=== PATIENT | male | born 1935 | race Caucasian/White ===

== ENCOUNTER 2016-07-31 19:36 | Inpatient (IN) | payer MEDICARE, OTHER ==
--- NOTE | ~2016-07-31 | IDS ---
Interim Discharge Summary [facility] [address] [place]. [address] NAME: JODIE PHAM : 34 STATUS : ADM IN PAT#: [id number] AGE: 81 ADM/REG DATE : 07/31/16 MR#: [id number] REPORT SERV DATE: 08/05/16 DICTATED BY: BEBO YEH DATE: 08/05/16 REPORT STATUS : Draft TRANSCRIBED BY: MODCaroline DATE: 08/05/16 ADMISSION DATE: 07/31/2016 DISCHARGE DATE: PCP: Ivania Moon M.D. INTERIM DIAGNOSES: 1. Possible right aspiration pneumonia. 2. COPD by CT scan. 3. Status post left hemiarthroplasty for femoral neck fracture. 4. Rule out left hip hematoma. 5. Closed head injury. 6. Acute blood loss anemia, status post 1 unit packed RBC. 7. History of peptic ulcer disease. 8. Dementia with sundowning. 9. Hypothyroidism. 10.Right pulmonary lung nodule, found in CAT scan. DIAGNOSTIC EXAMS: CAT scan of the brain without, showing no evidence of acute intracranial traumatic injury or pathology. Cerebral volume loss with mild supratentorial white matter disease suggesting microangiopathy. Cervical spine CAT scan showing no evidence of acute traumatic injury to the cervical spine. Multilevel cervical spondylosis and facet arthropathy with mild canal stenosis C6-C7 level; 0.6 cm right apical lung nodule with biapical scarring and emphysematous disease. Followup nonemergent chest CT recommended. Calcified atherosclerosis of the carotid bifurcations. Chest x-ray, no acute cardiopulmonary abnormality. Hip x-ray, impacted left femoral neck fracture. Pelvic x-ray, status post left hip arthroplasty without evidence of complication. CAT scan of the chest without showing 0.6 cm and pair of other 0.2 and 0.3 cm right upper lung pulmonary nodule. No other suspicious nodules or masses. Six-month followup with low-dose chest CT recommended. Patchy consolidation of the right lung base concerning for pneumonia or aspiration. Right upper lobe predominant COPD. LAD coronary artery sclerosis and/or stenting. Repeat chest x-ray, developing right basilar consolidation and mild left basilar atelectasis. KUB: Nonobstructive bowel gas pattern. HOSPITAL COURSE: Please refer to the H and P done by Dr. Guerra dated on 07/31/2016. Briefly this is an 81-year-old male, who comes in for left hip pain. The patient has a history of mild dementia and was going to ride his bike. He lost his balance, he hit his left side including his left head. The patient then could not get up because of left hip pain, brought to the emergency room, was found to have a left femoral neck impacted fracture. The patient was admitted by Dr. Guerra, and it does not seem that the patient has any traumatic brain injury. The patient then underwent a left hemiarthroplasty and that night, the patient had some sundowning. We discussed with the family at length that it is better to have a family member involved on just medications to keep the patient calm, but they said that nobody can come and they requested for medications. I discussed at length about the side affects of this and they agreed for me to give it. The patient is now being Interim Discharge Summary [address] [address] NAME: JODIE PHAM : 34 STATUS : [facility]#: [id number] AGE: 81 ADM/REG DATE : 07/31/16 MR#: [id number] REPORT SERV DATE: 08/05/16 DICTATED BY: BEBO YHE DATE: 08/05/16 REPORT STATUS : Draft TRANSCRIBED BY: MARISOL DATE: 08/05/16 given Angelo for this. Meanwhile we noted that his H and H went down from an initial 13.2 and 40 on admission, down to 8 and 23.6. We also noted that there seems to be increased bruising in the left hip area after the surgery, and I am worried about a hematoma. Orthopedic is involved and they agreed to hold the Eliquis for now. The patient started having some fever and some frothing in the mouth. It seems like he is spitting some clear phlegm. We repeated the x-ray and it shows a right lower infiltrate. The patient might have aspirated, so we started Zosyn on him. Unfortunately we are not able to get any sputum from him. The patient's lung nodule was also found during the CAT scan and also possible COPD. The patient got one unit of blood, it raised his H and H. He seems to be a little bit better right now. We are going to have Speech evaluate his swallowing and continue the antibiotics, monitoring the H and H, and we will await for further input from Orthopedics with regard to the left hip. Partner of [facility] will be following up the patient starting tomorrow morning. MICHAEL/MARISOL Bebo Yeh M.D. / [id number] CC: Moody Roberts M.D.
--- NOTE | ~2016-07-31 | HP ---
History And Physical [place] [id number] [facility] [place]. [address] NAME: JODIE PHAM : 34 STATUS : ADM IN [facility]#: [id number] AGE: 81 ADM/REG DATE : 07/31/16 MR#: [id number] REPORT SERV DATE: 08/01/16 DICTATED BY: STEPHON CRANE DATE: 08/01/16 REPORT STATUS : Draft TRANSCRIBED BY: MODCaroline DATE: 08/01/16 DATE OF ADMISSION: 07/31/2016 CHIEF COMPLAINT: An 81-year-old male, presenting with a fall and left hip fracture. HISTORY OF PRESENT ILLNESS: The patient's history was obtained through careful interview with the patient and coupled with review of [facility] medical records. The patient, just on day prior to admission, developed some slight diarrhea, felt dizzy, and unsteady, but then on the day leading up to admission had actually had resolution of these symptoms. He went on the back porch and was putting air in some bicycle tires, was going to try and take a quick bike ride, but while he was trying to adjust the bicycle and put air in the tires, he lost his balance and collapsed, hitting his left head and twisting his left leg. He felt dizzy and had orthostatics symptoms. Apparently there was no loss of consciousness. He hollered from the place where he was lying and his found that he could not bear weight or get up on his own. He described left hip pain aching quality, exacerbated with weightbearing, 10/10 severity. He describes his headache as just a soreness that is mild. No nausea or vomiting. No chest pain. No shortness of breath. No palpitations. REVIEW OF SYSTEMS: Otherwise, a 14-point review of systems was obtained and was negative. PAST MEDICAL HISTORY: 1. Alzheimer's dementia. 2. Peptic ulcer disease. 3. Elevated cholesterol. 4. Hypothyroidism. 5. No cardiac disease. No lung disease. PAST SURGICAL HISTORY: An open abdominal surgery for perforated ulcer. ALLERGIES: TO CODEINE. SOCIAL HISTORY: Quit smoking remotely. No alcohol abuse. He is . Lives in [place], [place]. He has children. Retired from working security. FAMILY HISTORY: Mother of a stroke. Father of congestive heart failure. Brother and sister with Alzheimer's dementia. He is the eldest of seven children. History And Physical [address] [place]. [address] NAME: JODIE PHAM : 34 STATUS : ADM IN PAT#: [id number] AGE: 81 ADM/REG DATE : 07/31/16 MR#: [id number] REPORT SERV DATE: 08/01/16 DICTATED BY: STEPHON CRANE DATE: 08/01/16 REPORT STATUS : Draft TRANSCRIBED BY: MARISOL DATE: 08/01/16 CURRENT MEDICATIONS: 1. Eye drops. 2. Calcium. 3. Vitamin D. 4. Vitamin B12. 5. Iron supplement. 6. Deepa 180 mg p.o. daily. 7. Prozac 20 mg p.o. daily. 8. Levothyroxine 75 mcg daily. 9. Mobic. 10.Namenda 10 mg p.o. b.i.d. 11.Fish oil. 12.Vitamin E. PHYSICAL EXAMINATION: VITAL SIGNS: Temperature 98, pulse 71, blood pressure 138/58, respiratory rate 14, and O2 saturation 100% on 2 L nasal cannula. GENERAL: An ill-appearing male, in evidence of distress secondary to his leg pain. HEENT: Pupils equal, round, and reactive to light. No conjunctival pallor. No scleral icterus. Nares are patent. Oropharynx is clear of obstruction. Moist mucous membranes. NECK: Trachea midline. No thyromegaly. LYMPH: No cervical lymphadenopathy. No supraclavicular lymphadenopathy. RESPIRATORY: Clear to auscultation at bases. No wheezes, rales, or rhonchi. Normal respiratory effort. CARDIOVASCULAR: Regular rate and rhythm. No murmurs, rubs, or gallops. No extremity edema is appreciated. ABDOMEN: Soft, nontender, and nondistended. Normal bowel sounds auscultated throughout. No hepatosplenomegaly. DERMATOLOGICAL: Warm and dry extremities. No pallor. No cyanosis. PSYCHIATRIC: Normal affect. Good mood. Alert and oriented x3. LABORATORY DATA: White blood cell count 12.2, hemoglobin 13, hematocrit 40, and platelets 222. Sodium 137, potassium 4.5, chloride 102, bicarb 31, BUN 16, creatinine 0.86, and glucose 125. Troponin negative. INR 1.1. Liver enzymes within normal limits. STUDIES: 1. Chest x-ray by my own evaluation shows no acute cardiopulmonary process. 2. CT scan of the brain without contrast shows no acute intracranial process. 3. EKG by my own evaluation shows sinus rhythm, no major abnormalities. 4. An x-ray of the left hip showed fracture. ASSESSMENT AND PLAN: 1. Left hip fracture. Consult Orthopedic Surgery. Place on IV narcotic pain management. History And Physical [address] [address] NAME: JODIE PHAM : 34 STATUS : ADM IN [facility]#: [id number] AGE: 81 ADM/REG DATE : 07/31/16 MR#: [id number] REPORT SERV DATE: 08/01/16 DICTATED BY: STEPHON CRANE DATE: 08/01/16 REPORT STATUS : Draft TRANSCRIBED BY: MARISOL DATE: 08/01/16 2. Dementia. 3. Closed head injury. Monitor closely. KPL/MODL Stephon Crane M.D. / [id number] CC: Moody Roberts M.D.
--- NOTE | ~2016-07-31 | OP ---
Record Of Operation [facility] [address] [place]. [address] NAME: JODIE PHAM : 34 STATUS : ADM IN PAT#: [id number] AGE: 81 ADM/REG DATE : 07/31/16 MR#: [id number] REPORT SERV DATE: 08/02/16 DICTATED BY: RYLIE LEWIS DATE: 08/01/16 REPORT STATUS : Draft TRANSCRIBED BY: MODL DATE: 08/01/16 DATE OF PROCEDURE: 08/01/2016 PREOPERATIVE DIAGNOSIS: Left hip femoral neck fracture. POSTOPERATIVE DIAGNOSIS: Left hip femoral neck fracture. PROCEDURE: Left hip hemiarthroplasty for femoral neck fracture, displaced. IMPLANTS: [employer] size 16 standard neck stem, I utilized a 54 cobalt-chrome head ball with a minus adaptor. COMPLICATIONS: None. BLOOD LOSS: Less than 50 mL. SPECIMENS: None. CONDITION UPON LEAVING THE OR: Stable to recovery room with good distal pulses. ANESTHESIA: General. COUNTS RECORDED CORRECT: Yes. FINDINGS: Displaced femoral neck fracture with intact good articular cartilage on the acetabular cup. INDICATIONS FOR PROCEDURE: I gave the operative risks and benefits of surgical indications versus nonsurgical management, including but not limited to , myocardial infarction, pulmonary embolism, stroke, deep venous thrombosis, damage to nerves, damage to vessels, damage to other soft tissues, painful scar, unsightly scar, hardware wear, hardware breakage, periprosthetic fracture, dislocation, and leg length inequality. Possible need for revision surgery that could include further arthroplasty, arthrodesis, or amputation. We also discussed bleeding and infection. The patient verbalized understanding of these risks and wished to proceed to the operating room. PROCEDURE IN DETAIL: After the patient was identified in the preoperative holding area, all risks and benefits again were discussed with the patient. All questions answered satisfactorily. The patient wished to proceed with surgery. Correct side and site was identified, marked by me. We then proceeded to the operating room, where the patient was placed under general endotracheal anesthesia, supine on the regular OR bed. A Drake catheter was placed. The patient was transferred to the lateral decubitus position with the operative hip up. Prepped and draped in sterile fashion. Correct antibiotics and time-out procedure observed by all in the room. We then began with a 10 cm standard posterolateral incision carried sharply down through the tissues and the fascia vonda was incised in line with the incision. Bovie cautery was utilized to gain hemostasis. The gluteus max fibers Record Of Operation [facility] [address] [place]. [address] NAME: JODIE PHAM : 34 STATUS : ADM IN PAT#: [id number] AGE: 81 ADM/REG DATE : 07/31/16 MR#: [id number] REPORT SERV DATE: 08/02/16 DICTATED BY: RYLIE LEWIS DATE: 08/01/16 REPORT STATUS : Draft TRANSCRIBED BY: MARISOL DATE: 08/01/16 were split in line with their orientation giving good visualization of the posterolateral aspect of the hip. The piriformis was identified and taken down in its insertion as well as the remainder of the short external rotators in the posterior capsule. This was tagged and brought posterior to protect the sciatic nerve which had been identified prior to the previous stab. With that, the distal femur was easily dislocated leaving the remainder of the head ball in the bony acetabulum. This was subsequently removed noting good articular cartilage at the femoral head, as well as the bony acetabulum. We elected to choose a hemiarthroplasty at this time for its decreased dislocation rate. With that, we copiously irrigated the bony acetabulum placed a proximal femoral elevator freshened a neck cut and began broaching and reaming for the AML stem. Once the size was settled upon, it was trialed noting to recreate his leg lengths and offset. With that, we extracted the trial components impacted our final AML stem in approximately 15 degrees of anteversion to match the patient's [place] version, placed the final head ball on a clean dry Key taper. After trials, again settling on a -3 neck with final implants in, he was reduced noting good suction fit within the bony acetabulum noting good recreation of soft tissue repair, coming to full extension and external rotation without impingement. There was no excessive tension on the sciatic nerve. Leg lengths were clinically equal on the table and the patient was able to flex to 90 degrees slight adduct and internally rotate to 75 degrees before beginning to sublux this head ball out of the bony acetabulum. With that, we felt the patient was stable. We copiously irrigated all of the soft tissues, closed the posterior capsule and short external rotators with number 1 Ethibond through bone tunnels, followed by two Quill in the fascia vonda, followed by skin rodney and 2-0 Vicryl in the skin, followed by Monocryl and Steri-Strips. The patient was awakened and transferred to the recovery room in stable condition. HAIR/MARISOL Rylie Lewis M.D. / [id number] CC: Moody Roberts DO
--- NOTE | ~2016-07-31 | CN ---
Consultation Report [facility] [address] [place]. [address] NAME: JODIE PHAM : 34 STATUS : ADM IN PAT#: [id number] AGE: 81 ADM/REG DATE : 07/31/16 MR#: [id number] REPORT SERV DATE: 08/01/16 DICTATED BY: RYLIE LEWIS DATE: 08/01/16 REPORT STATUS : Draft TRANSCRIBED BY: MODL DATE: 08/01/16 CONSULTATION DATE OF CONSULTATION: 08/01/2016 CHIEF COMPLAINT: Left hip pain. HISTORY OF PRESENT ILLNESS: This pleasant 81-year-old with Alzheimer's dementia, had suffered a same-level fall where he was noted to have hip pain by his . He was brought to the [facility] Emergency Room, where he was noted to have a displaced femoral neck fracture. He was seen by our Hospitalist Team where he was evaluated and noted to be medically optimized for surgical intervention. I was subsequently consulted. PAST MEDICAL HISTORY: Significant for his Alzheimer's dementia, peptic ulcer disease, elevated cholesterol, hypothyroidism. PAST SURGICAL HISTORY: Includes an open abdominal surgery for a perforated ulcer. ALLERGIES: CODEINE. SOCIAL HISTORY: No alcohol, tobacco, or other illicits. He has very supportive and daughter. FAMILY HISTORY: Significant for congestive heart failure, stroke, and Alzheimer's. CURRENT MEDICATIONS: Include Deepa, Prozac, Synthroid, Mobic, Namenda, fish oil, and vitamin E. PHYSICAL EXAMINATION: GENERAL: On exam, I see a man who looks stated age. A and O times x3. Pleasant, cooperative with exam. He did know person, place, and time for me today, although the family states that is not his usual state, and he comes in and out of confusion fairly easily. HEENT: Pupils equally round and reactive to light and accommodation. Extraocular muscles intact. He does have a bruise with a small laceration superficial to his left forehead just above his left eyebrow, it is currently bandaged and dry. MUSCULOSKELETAL: CT and L-spine, no tenderness to palpation. No step-offs. Full active and passive range of motion. ABDOMEN: Soft, nontender, nondistended. Bowel sounds are present. CHEST: Clear to auscultation bilaterally. HEART: Regular rate and rhythm. EXTREMITIES: Bilateral upper extremity and the right lower extremity show full active and passive range of motion. Good distal pulses. No peripheral edema. Good sensation. No skin breaks. No bruising. The left lower extremity exam is limited by left groin pain, but Consultation Report [place] [id number] [facility] [address] NAME: JODIE PHAM : 34 STATUS : ADM IN PAT#: [id number] AGE: 81 ADM/REG DATE : 07/31/16 MR#: [id number] REPORT SERV DATE: 08/01/16 DICTATED BY: RYLIE LEWIS DATE: 08/01/16 REPORT STATUS : Draft TRANSCRIBED BY: MARISOL DATE: 08/01/16 he does have good distal pulses. No peripheral edema. Good sensation. No skin breaks. RADIOGRAPHS: Reveal a displaced left femoral neck fracture. ASSESSMENT: An 81-year-old with Alzheimer's dementia, status post same level fall with a left displaced femoral neck fracture. PLAN: Will be for a left hip hemiarthroplasty. I have discussed the risks and benefits with the family at length. They verbalized understanding and wished to proceed. HAIR/MARISOL Rylie Lewis M.D. / [id number] CC: Moody Roberts DO
--- NOTE | ~2016-07-31 | DS ---
Discharge Summary [facility] [address] [facility] [place]. [address] NAME: JODIE PHAM : 34 STATUS : DIS IN PAT#: [id number] AGE: 81 ADM/REG DATE : 07/31/16 MR#: [id number] REPORT SERV DATE: 08/08/16 DICTATED BY: ROMAN ARITA DATE: 08/07/16 REPORT STATUS : Draft TRANSCRIBED BY: MODL DATE: 08/07/16 ADMISSION DATE: 07/31/2016 DISCHARGE DATE: 08/07/2016 DISCHARGE DIAGNOSES: 1. Possible right aspiration pneumonia. 2. Metabolic encephalopathy, currently resolved. 3. Alzheimer dementia, stable at this time. 4. Chronic obstructive pulmonary disease by CT scan. 5. Status post left hemiarthroplasty for femoral neck fracture that is traumatic in nature. 6. Left hip hematoma currently stable and only bruising going down the posterior aspect of the left thigh. 7. Closed head injury. 8. Acute blood loss anemia, status post one unit of PRBC, stable. 9. History of peptic ulcer disease. 10.Hypothyroidism. 11.Pulmonary lung nodule found on the CT scan. No intervention at this time. DIAGNOSTIC STUDIES: Please refer to interim summary dictated by Dr. Torres on 08/05/2016. BRIEF HISTORY OF PRESENT ILLNESS: The patient is an 81-year-old male, came in with left hip pain with a history of mild dementia, wanting to ride his bike and found to have a femoral neck fracture. So, he was admitted. For detailed history and physical exam, please see note dictated by Dr. Eliseo Guerra on 07/31/2016. HOSPITAL COURSE: After being admitted to the hospital, this patient was cared for by Dr. Torres. Please refer to interim summary dictated by Dr. Torres on 08/05/2016. I took over this patient's care on 08/06/2016. This patient had what appeared to be metabolic encephalopathy most likely related to use of anesthesia and then complicated by the underlying dementia. This patient continued to improve. Today, he is actually ambulating with only minimal assistance using a walker. He still unsafe and somewhat unsteady and needs rehab. We discussed with the family the possibility of skilled unit or rehab, and the patient's is agreeable to that. This patient did have some combativeness earlier on in the course of the hospitalization which has since resolved. He is doing well. on Seroquel and we will increase it to 25 mg once daily. As far as his aspiration pneumonia, there still remains a slight infiltrate in the right lung, but is improving and will finish his course of antibiotics with oral antibiotics. His anemia is stable. At this time, he requires rehab, and he is ready from a medical standpoint to go to rehab. DISCHARGE DISPOSITION: To rehab. DISCHARGE ACTIVITY: Per facility. DISCHARGE DIET: Low-sodium diet. Discharge Summary [place] [id number] [facility] [place]. [address] NAME: JODIE PHAM : 34 STATUS : DIS IN PAT#: [id number] AGE: 81 ADM/REG DATE : 07/31/16 MR#: [id number] REPORT SERV DATE: 08/08/16 DICTATED BY: ROMAN ARITA DATE: 08/07/16 REPORT STATUS : Draft TRANSCRIBED BY: MARISOL DATE: 08/07/16 DISCHARGE MEDICATIONS: Amoxicillin 875 mg p.o. twice daily for 3 more days, vitamin B12 of 1000 mcg once daily, Caltrate 600 mg once daily, iron 325 mg once daily, Prozac 20 mg once daily, levothyroxine 75 mcg once daily, Deepa 180 mg once daily, Namenda 10 mg twice daily, fish oil mg daily at noon time, Seroquel 25 mg once daily to be dosed at 4 p.m. daily, Artificial Tears one drop p.r.n., MiraLAX one packet twice daily p.r.n. for constipation, and vitamin E one tablet daily. DISCHARGE FOLLOWUP: With Dr. Santhosh Dinero post rehab. More than 30 minutes spent in planning this patient's discharge, reconciling medications, discussing rehab options with the family at the bedside, arranging rehab, signing all forms, and documenting this discharge. JEANNETTE/MARISOL Roman Arita M.D. / [id number] CC: Moody Roberts DO
[2016-07-31 19:38] LABS: BASOPHILS 0.2 %; BASOPHILS ABSOLUTE 0.02 10/3/uL (0.0-0.16); EOSINOPHILS 0.5 %; EOSINOPHILS ABSOLUTE 0.06 10/3/uL (0.0-0.53); HEMOGLOBIN 13.2 g/dL (13.6-17.8); IMMATURE GRANULOCYTES 0.2 %; IMMATURE GRANULOCYTES ABSOLUTE 0.03 10/3/uL (0.0-0.11); LYMPHOCYTES ABSOLUTE 1.46 10/3/uL (0.67-4.30); MEAN CORPUSCULAR HEMOGLOB 28.8 pg (26.0-34.0); MEAN CORPUSCULAR VOLUME 87.1 fL (80-100); MEAN PLATELET VOLUME 9.1 fL (9.2-13.0); MONOCYTES 7.5 %; MONOCYTES ABSOLUTE 0.91 10/3/uL (0.21-1.20); NEUTROPHILS 79.6 %; NEUTROPHILS ABSOLUTE 9.68 10/3/uL (2.02-8.40); PLATELET COUNT 222 10/3/uL (150-400); RBC DISTRIBUTION WIDTH 12.7 % (12.0-16.0); RED CELL COUNT 4.59 10/6/uL (4.7-6.1)
[2016-07-31 19:39] LABS: ER CBC TAT 0 Hrs 10 Mins; MANUAL DIFF NO %; WHITE BLOOD CELLS 12.2 10/3/uL (4.5-10.5)
[2016-07-31 19:48] LABS: PARTIAL THROMBO TIME 31.4 SEC (22.5-37.2); PROTIME (NOT ORD) 12.9 SEC (12.0-14.5)
[2016-07-31 19:59] LABS: ALKALINE PHOSPHATASE 68 U/L (45-117); CHEST PAIN PROFILE TAT 0 Hrs 30 Mins; CHLORIDE, SERUM 102 MMOL/L (96-112); CO2 (CARBON DIOXIDE) 31 MMOL/L (24-34); CREATININE 0.86 MG/DL (0.70-1.30); GFR AFRICAN AMERICAN 94 ML/MIN (>=60); GFR NON AFRICAN AMERICAN 81 ML/MIN (>=60); POTASSIUM, SERUM 4.5 MMOL/L (3.5-5.3); SGOT(AST) 20 U/L (5-40); SGPT(ALT) 19 U/L (5-65); SODIUM, SERUM 137 MMOL/L (135-148); TOTAL PROTEIN 7.3 G/DL (6.0-8.5); TROPONIN I <0.02 NG/ML (<0.05)
[2016-07-31 20:00] LABS: BUN (BLOOD UREA NITROGEN) 16 MG/DL (6-23); DIRECT BILIRUBIN < 0.1 MG/DL (0.0-0.4); GLUCOSE, SERUM 125 MG/DL (60-99); INDIRECT BILIRUBIN(NOT ORDER) 0.2 MG/DL (0.1-0.9); TOTAL BILIRUBIN 0.3 MG/DL (0-1.2)
[2016-07-31] MEDS ORDERED: PROZAC PO (20:30)
[2016-07-31] MEDS ORDERED: NAMENDA10 MG PO (20:30)
[2016-07-31] MEDS ORDERED: VITAMIN E PO (20:31)
[2016-07-31] MEDS ORDERED: CALTRA600D PO (20:31)
[2016-07-31] MEDS ORDERED: MOBIC7.5 PO (20:31)
[2016-07-31] MEDS ORDERED: CYANO1000T PO (20:32)
[2016-07-31] MEDS ORDERED: FISH-EPA1000 MG PO (20:32)
[2016-07-31] MEDS ORDERED: FERROUS SULF325 M1 PO (20:32)
[2016-07-31] MEDS ORDERED: ALLEGRA180 PO (20:32)
[2016-07-31] MEDS ORDERED: REFRESH OPH (20:33)
[2016-07-31] MEDS ORDERED: LEVOTHYROXIN75 MCG PO (20:34)
[2016-07-31 21:49] LABS: ASCORBIC ACID (UR NOT ORDER) NEG (NEG); BILIRUBIN, URINE NEGATIVE (NEG); ER URINALYSIS TAT 0 Hrs 16 Mins; KETONE, URINE NEGATIVE (NEG); LEUKOCYTE ESTERASE(NOT OR TRACE (NEG); NITRITE (URINE) NEG (NEG); WBC (NOT ORDERED) (RFLEX) 1 (0-5)
[2016-08-01 05:48] LABS: BASOPHILS 0.1 %; BASOPHILS ABSOLUTE 0.02 10/3/uL (0.0-0.16); EOSINOPHILS 0.4 %; EOSINOPHILS ABSOLUTE 0.05 10/3/uL (0.0-0.53); HEMATOCRIT 37.4 % (40.0-51.0); HEMOGLOBIN 12.6 g/dL (13.6-17.8); IMMATURE GRANULOCYTES 0.2 %; IMMATURE GRANULOCYTES ABSOLUTE 0.03 10/3/uL (0.0-0.11); LYMPHOCYTES 8.3 %; LYMPHOCYTES ABSOLUTE 1.17 10/3/uL (0.67-4.30); MEAN CORPUS HGB CONC 33.7 g/dL (32.0-36.0); MEAN CORPUSCULAR VOLUME 86.2 fL (80-100); MEAN PLATELET VOLUME 9.5 fL (9.2-13.0); MONOCYTES 12.1 %; MONOCYTES ABSOLUTE 1.71 10/3/uL (0.21-1.20); NEUTROPHILS 78.9 %; NEUTROPHILS ABSOLUTE 11.12 10/3/uL (2.02-8.40); PLATELET COUNT 178 10/3/uL (150-400); RBC DISTRIBUTION WIDTH 12.3 % (12.0-16.0); RED CELL COUNT 4.34 10/6/uL (4.7-6.1); WHITE BLOOD CELLS 14.1 10/3/uL (4.5-10.5)
[2016-08-01 05:50] LABS: MANUAL DIFF NO %
[2016-08-01 06:10] LABS: A/G RATIO 1.2 (0.7-1.9); ALBUMIN 3.5 G/DL (3.5-5.0); ALKALINE PHOSPHATASE 57 U/L (45-117); BUN (BLOOD UREA NITROGEN) 15 MG/DL (6-23); CALCIUM, SERUM 8.5 MG/DL (8.5-10.4); CHLORIDE, SERUM 103 MMOL/L (96-112); CO2 (CARBON DIOXIDE) 28 MMOL/L (24-34); CPK 169 U/L (0-200); CREATININE 0.76 MG/DL (0.70-1.30); GFR AFRICAN AMERICAN 98 ML/MIN (>=60); GFR NON AFRICAN AMERICAN 85 ML/MIN (>=60); GLOBULIN 2.9 G/DL (2.5-4.1); POTASSIUM, SERUM 4.3 MMOL/L (3.5-5.3); SGOT(AST) 18 U/L (5-40); SGPT(ALT) 17 U/L (5-65); SODIUM, SERUM 135 MMOL/L (135-148); TOTAL PROTEIN 6.4 G/DL (6.0-8.5); TROPONIN I <0.02 NG/ML (<0.05)
[2016-08-01 06:21] LABS: CK-MB 2.1 NG/ML; GLUCOSE, SERUM 152 MG/DL (60-99); TOTAL BILIRUBIN 0.8 MG/DL (0-1.2)
[2016-08-01 07:59] LABS: INTERNATIONAL NORMAL RATI 1.1 UNITS (-); PARTIAL THROMBO TIME 35.4 SEC (22.5-37.2); PROTIME (NOT ORD) 13.7 SEC (12.0-14.5)
[2016-08-02 07:32] LABS: BASOPHILS 0.1 %; BASOPHILS ABSOLUTE 0.01 10/3/uL (0.0-0.16); EOSINOPHILS 0.2 %; EOSINOPHILS ABSOLUTE 0.03 10/3/uL (0.0-0.53); HEMATOCRIT 33.1 % (40.0-51.0); IMMATURE GRANULOCYTES 0.4 %; IMMATURE GRANULOCYTES ABSOLUTE 0.06 10/3/uL (0.0-0.11); LYMPHOCYTES 7.2 %; LYMPHOCYTES ABSOLUTE 1.16 10/3/uL (0.67-4.30); MEAN CORPUS HGB CONC 33.2 g/dL (32.0-36.0); MEAN CORPUSCULAR VOLUME 87.3 fL (80-100); MEAN PLATELET VOLUME 9.5 fL (9.2-13.0); MONOCYTES 13.6 %; MONOCYTES ABSOLUTE 2.19 10/3/uL (0.21-1.20); NEUTROPHILS 78.5 %; NEUTROPHILS ABSOLUTE 12.64 10/3/uL (2.02-8.40); PLATELET COUNT 178 10/3/uL (150-400); RBC DISTRIBUTION WIDTH 12.7 % (12.0-16.0); RED CELL COUNT 3.79 10/6/uL (4.7-6.1); WHITE BLOOD CELLS 16.1 10/3/uL (4.5-10.5)
[2016-08-02 07:33] LABS: MANUAL DIFF NO %
[2016-08-02 07:44] LABS: BUN (BLOOD UREA NITROGEN) 18 MG/DL (6-23); CALCIUM, SERUM 8.4 MG/DL (8.5-10.4); CHLORIDE, SERUM 103 MMOL/L (96-112); CO2 (CARBON DIOXIDE) 28 MMOL/L (24-34); GFR AFRICAN AMERICAN 102 ML/MIN (>=60); GFR NON AFRICAN AMERICAN 88 ML/MIN (>=60); GLUCOSE, SERUM 131 MG/DL (60-99); POTASSIUM, SERUM 4.4 MMOL/L (3.5-5.3); SODIUM, SERUM 135 MMOL/L (135-148)
[2016-08-03 06:24] LABS: BASOPHILS 0.1 %; BASOPHILS ABSOLUTE 0.02 10/3/uL (0.0-0.16); EOSINOPHILS 0.3 %; EOSINOPHILS ABSOLUTE 0.05 10/3/uL (0.0-0.53); HEMATOCRIT 28.2 % (40.0-51.0); HEMOGLOBIN 9.9 g/dL (13.6-17.8); IMMATURE GRANULOCYTES 0.2 %; IMMATURE GRANULOCYTES ABSOLUTE 0.03 10/3/uL (0.0-0.11); LYMPHOCYTES 8.2 %; MANUAL DIFF NO %; MEAN CORPUS HGB CONC 35.1 g/dL (32.0-36.0); MEAN CORPUSCULAR HEMOGLOB 30.2 pg (26.0-34.0); MEAN PLATELET VOLUME 9.8 fL (9.2-13.0); MONOCYTES 16.2 %; MONOCYTES ABSOLUTE 2.38 10/3/uL (0.21-1.20); PLATELET COUNT 169 10/3/uL (150-400); RBC DISTRIBUTION WIDTH 12.4 % (12.0-16.0); RED CELL COUNT 3.28 10/6/uL (4.7-6.1); WHITE BLOOD CELLS 14.7 10/3/uL (4.5-10.5)
[2016-08-04 05:50] LABS: BUN (BLOOD UREA NITROGEN) 15 MG/DL (6-23); CALCIUM, SERUM 8.5 MG/DL (8.5-10.4); CHLORIDE, SERUM 98 MMOL/L (96-112); CO2 (CARBON DIOXIDE) 25 MMOL/L (24-34); CREATININE 0.62 MG/DL (0.70-1.30); GFR AFRICAN AMERICAN 107 ML/MIN (>=60); GFR NON AFRICAN AMERICAN 92 ML/MIN (>=60); GLUCOSE, SERUM 129 MG/DL (60-99); SODIUM, SERUM 131 MMOL/L (135-148)
[2016-08-04 05:55] LABS: POTASSIUM, SERUM 4.4 MMOL/L (3.5-5.3)
[2016-08-04 06:02] LABS: HEMATOCRIT 23.6 % (40.0-51.0); MANUAL DIFF YES %; MEAN CORPUS HGB CONC 33.9 g/dL (32.0-36.0); MEAN CORPUSCULAR HEMOGLOB 28.6 pg (26.0-34.0); MEAN CORPUSCULAR VOLUME 84.3 fL (80-100); MEAN PLATELET VOLUME 10.2 fL (9.2-13.0); NUCLEATED RED BLOOD CELLS 0.3 /100WBC (0-0); PLATELET COUNT 182 10/3/uL (150-400); RBC DISTRIBUTION WIDTH 12.3 % (12.0-16.0); WHITE BLOOD CELLS 12.3 10/3/uL (4.5-10.5)
[2016-08-04 06:37] LABS: BAND NEUTROPHILS 3 %; LYMPHOCYTES 7 %; LYMPHOCYTES ABSOLUTE (CALC) 0.86 10/3/uL (0.67-4.30); MONOCYTES 10 %; MONOCYTES ABSOLUTE (CALC) 1.23 10/3/uL (0.21-1.20); NEUTROPHILS ABSOLUTE (CALC) 10.21 10/3/uL (2.02-8.40); SEGMENTED NEUTROPHIL (0) 80 %; TOTAL NUCLEATED CELLS 100
[2016-08-04 06:38] LABS: POLYCHROMASIA 1+ (2-5/OIF) (0-1/OIF)
[2016-08-04 16:39] LABS: HEMATOCRIT 24.9 % (40.0-51.0); HEMOGLOBIN 8.8 g/dL (13.6-17.8)
[2016-08-04 16:48] LABS: ASCORBIC ACID (UR NOT ORDER) NEG (NEG); BILIRUBIN, URINE NEGATIVE (NEG); KETONE, URINE 20 MG/DL (NEG); LEUKOCYTE ESTERASE(NOT OR NEG (NEG); WBC (NOT ORDERED) (RFLEX) 3 (0-5)
[2016-08-05 06:04] LABS: HEMATOCRIT 26.2 % (40.0-51.0); HEMOGLOBIN 9.4 g/dL (13.6-17.8); MEAN CORPUSCULAR HEMOGLOB 29.3 pg (26.0-34.0); MEAN PLATELET VOLUME 9.6 fL (9.2-13.0); RED CELL COUNT 3.21 10/6/uL (4.7-6.1); WHITE BLOOD CELLS 11.8 10/3/uL (4.5-10.5)
[2016-08-05 06:07] LABS: MANUAL DIFF YES %; MEAN CORPUS HGB CONC 35.9 g/dL (32.0-36.0); MEAN CORPUSCULAR VOLUME 81.6 fL (80-100); PLATELET COUNT 260 10/3/uL (150-400)
[2016-08-05 06:13] LABS: BUN (BLOOD UREA NITROGEN) 16 MG/DL (6-23); CALCIUM, SERUM 8.5 MG/DL (8.5-10.4); CHLORIDE, SERUM 102 MMOL/L (96-112); CO2 (CARBON DIOXIDE) 28 MMOL/L (24-34); CREATININE 0.67 MG/DL (0.70-1.30); GFR AFRICAN AMERICAN 104 ML/MIN (>=60); GFR NON AFRICAN AMERICAN 89 ML/MIN (>=60); GLUCOSE, SERUM 147 MG/DL (60-99)
[2016-08-05 06:14] LABS: POTASSIUM, SERUM 3.3 MMOL/L (3.5-5.3); SODIUM, SERUM 138 MMOL/L (135-148)
[2016-08-05 06:40] LABS: BAND NEUTROPHILS 5 %; LYMPHOCYTES 5 %; LYMPHOCYTES ABSOLUTE (CALC) 0.59 10/3/uL (0.67-4.30); MONOCYTES 8 %; MONOCYTES ABSOLUTE (CALC) 0.94 10/3/uL (0.21-1.20); NEUTROPHILS ABSOLUTE (CALC) 10.27 10/3/uL (2.02-8.40); PLATELET ESTIMATE ADQ (ADEQUATE); SEGMENTED NEUTROPHIL (0) 82 %; TOTAL NUCLEATED CELLS 100
[2016-08-05 06:45] LABS: POLYCHROMASIA 1+ (2-5/OIF) (0-1/OIF); TOXIC GRANULATION 1+
[2016-08-05 16:39] LABS: HEMATOCRIT 24.5 % (40.0-51.0); HEMOGLOBIN 8.6 g/dL (13.6-17.8)
[2016-08-06 05:39] LABS: BASOPHILS 0.1 %; BASOPHILS ABSOLUTE 0.01 10/3/uL (0.0-0.16); EOSINOPHILS 0.5 %; EOSINOPHILS ABSOLUTE 0.04 10/3/uL (0.0-0.53); HEMATOCRIT 23.6 % (40.0-51.0); HEMOGLOBIN 8.2 g/dL (13.6-17.8); IMMATURE GRANULOCYTES 0.6 %; IMMATURE GRANULOCYTES ABSOLUTE 0.05 10/3/uL (0.0-0.11); LYMPHOCYTES 11.6 %; MEAN CORPUS HGB CONC 34.7 g/dL (32.0-36.0); MEAN CORPUSCULAR HEMOGLOB 29.1 pg (26.0-34.0); MEAN CORPUSCULAR VOLUME 83.7 fL (80-100); MEAN PLATELET VOLUME 8.9 fL (9.2-13.0); MONOCYTES 18.4 %; MONOCYTES ABSOLUTE 1.58 10/3/uL (0.21-1.20); NEUTROPHILS 68.8 %; NEUTROPHILS ABSOLUTE 5.92 10/3/uL (2.02-8.40); PLATELET COUNT 262 10/3/uL (150-400); RBC DISTRIBUTION WIDTH 13.3 % (12.0-16.0); RED CELL COUNT 2.82 10/6/uL (4.7-6.1); WHITE BLOOD CELLS 8.6 10/3/uL (4.5-10.5)
[2016-08-06 05:40] LABS: MANUAL DIFF NO %
[2016-08-06 05:58] LABS: BUN (BLOOD UREA NITROGEN) 18 MG/DL (6-23); CALCIUM, SERUM 8.1 MG/DL (8.5-10.4); CHLORIDE, SERUM 107 MMOL/L (96-112); CO2 (CARBON DIOXIDE) 28 MMOL/L (24-34); CREATININE 0.59 MG/DL (0.70-1.30); GFR AFRICAN AMERICAN 109 ML/MIN (>=60); GFR NON AFRICAN AMERICAN 94 ML/MIN (>=60); POTASSIUM, SERUM 3.3 MMOL/L (3.5-5.3); SODIUM, SERUM 141 MMOL/L (135-148)
[2016-08-06 05:59] LABS: GLUCOSE, SERUM 114 MG/DL (60-99)
[2016-08-07 05:11] LABS: BASOPHILS 0.1 %; BASOPHILS ABSOLUTE 0.01 10/3/uL (0.0-0.16); EOSINOPHILS 1.1 %; HEMATOCRIT 25.3 % (40.0-51.0); HEMOGLOBIN 8.6 g/dL (13.6-17.8); IMMATURE GRANULOCYTES 0.9 %; IMMATURE GRANULOCYTES ABSOLUTE 0.08 10/3/uL (0.0-0.11); LYMPHOCYTES 14.8 %; LYMPHOCYTES ABSOLUTE 1.33 10/3/uL (0.67-4.30); MANUAL DIFF NO %; MEAN CORPUSCULAR HEMOGLOB 28.9 pg (26.0-34.0); MEAN CORPUSCULAR VOLUME 84.9 fL (80-100); MEAN PLATELET VOLUME 8.8 fL (9.2-13.0); MONOCYTES 14.9 %; MONOCYTES ABSOLUTE 1.34 10/3/uL (0.21-1.20); NEUTROPHILS 68.2 %; NEUTROPHILS ABSOLUTE 6.15 10/3/uL (2.02-8.40); PLATELET COUNT 309 10/3/uL (150-400); RED CELL COUNT 2.98 10/6/uL (4.7-6.1)
[2016-08-07 05:19] LABS: BUN (BLOOD UREA NITROGEN) 17 MG/DL (6-23); CALCIUM, SERUM 8.5 MG/DL (8.5-10.4); CHLORIDE, SERUM 107 MMOL/L (96-112); CO2 (CARBON DIOXIDE) 26 MMOL/L (24-34); CREATININE 0.64 MG/DL (0.70-1.30); GFR AFRICAN AMERICAN 106 ML/MIN (>=60); GFR NON AFRICAN AMERICAN 91 ML/MIN (>=60); GLUCOSE, SERUM 96 MG/DL (60-99); PHOSPHORUS, SERUM 1.3 MG/DL (2.5-4.5); POTASSIUM, SERUM 3.3 MMOL/L (3.5-5.3); SODIUM, SERUM 142 MMOL/L (135-148)
[2016-08-07 05:24] LABS: ALBUMIN 2.3 G/DL (3.5-5.0)
== END 2016-08-07 16:02 | DRG 469 ==
LOC: ER 19:36 → 2SO 20:53
PROVIDERS: Emergency Medicine; Hospitalist; Internal Medicine; Orthopaedic Surgery
PROC: 0SRS01Z Replacement of Left Hip Joint, Femoral Surface with Metal Synthetic Substitute, Open Approach (ICD-10-PCS; principal; 2016-07-31)
PROC: 0HQ1XZZ Repair Face Skin, External Approach (ICD-10-PCS; 2016-07-31)
PROC: 30233N1 Transfusion of Nonautologous Red Blood Cells into Peripheral Vein, Percutaneous Approach (ICD-10-PCS; 2016-08-04)
DX: S72.002A Fracture of unspecified part of neck of left femur, initial encounter for closed fracture (principal); J69.0 Pneumonitis due to inhalation of food and vomit; G92 Toxic encephalopathy; D62 Acute posthemorrhagic anemia; G30.9 Alzheimer's disease, unspecified; S01.81XA Laceration without foreign body of other part of head, initial encounter; F02.80 Dementia in other diseases classified elsewhere, unspecified severity, without behavioral disturbance, psychotic disturbance, mood disturbance, and anxiety; K27.9 Peptic ulcer, site unspecified, unspecified as acute or chronic, without hemorrhage or perforation; I95.1 Orthostatic hypotension; E78.00 Pure hypercholesterolemia, unspecified; E03.9 Hypothyroidism, unspecified; R91.1 Solitary pulmonary nodule; M48.02 Spinal stenosis, cervical region; I65.23 Occlusion and stenosis of bilateral carotid arteries; T14.8 Other injury of unspecified body region; W19.XXXA Unspecified fall, initial encounter; Z98.890 Other specified postprocedural states; Z82.3 Family history of stroke; Z82.49 Family history of ischemic heart disease and other diseases of the circulatory system; Y93.55 Activity, bike riding
CPT/HCPCS: 36415; 70450; 71010; 71020; 71250; 72125; 72170; 73502-LT; 74000; 80048; 80053; 80069; 80076; 81001; 82550; 82553; 82962; 83690; 83735; 83880; 84132; 84443; 84484; 85014; 85018; 85025; 85610; 85730; 86850; 86900; 86901; 86920; 87040; 87641; 88305; 88311; 92610-GN; 93005; 96374; 97110-GO; 97110-GP; 97116-GP; 97162-GP; 97164-GP; 97166-GO; 97530-GP; 97535-GO; 99285; A9270-GY; C1776; G8978-CK-GP; G8979-CK-GP; G8996-CJ-GN; G8997-CJ-GN; G8998-CJ-GN; J0330; J0690; J1170; J1885; J2270; J2274; J2370; J2405; J2543; J2710; J2795; J3010; J3370; J3486; P9016